=== PATIENT | male | born 1960 | race Caucasian/White ===

== ENCOUNTER 2025-09-30 08:23 | Emergency (ER) | payer OTHER ==
[~2025-09-30] VITALS: Ht 167.6 cm; Wt 73.0 kg
[2025-09-30 08:29] VITALS: O2SAT 98
[2025-09-30 10:51] LABS: CLARITY URINE CLEAR (CLEAR); COLOR URINE YELLOW (YELLOW); GLUCOSE URINE 3+ (NEGATIVE); KETONES URINE NEGATIVE (NEGATIVE); LEUKOCYTE ESTERASE URINE NEGATIVE (NEGATIVE); NITRITE URINE NEGATIVE (NEGATIVE); OCCULT BLOOD URINE NEGATIVE (NEGATIVE); PH URINE 5.5 (4.5-8.0); PROTEIN URINE 2+ (NEGATIVE); SPECIFIC GRAVITY URINE 1.015 (1.005-1.030); UROBILINOGEN URINE 0.2 E.U./dL (0.2-1.0)
[2025-09-30 11:13] LABS: CREATININE 2.6 mg/dL (0.6-1.3); UREA NITROGEN BLOOD 26.0 mg/dL (9-23)
[2025-09-30 11:22] LABS: BASOPHILS % 1.8 % (0.0-2.0); EOSINOPHILS % 5.4 % (0.0-5.0); HEMATOCRIT. 45.5 % (42.0-52.0); HEMOGLOBIN. 14.5 g/dL (14.0-18.0); LYMPHOCYTES % 23.3 % (20.0-50.0); MEAN PLATELET VOLUME 9.2 fl (7.4-10.4); MONOCYTES % 8.4 % (2.0-8.0); NEUTROPHILS % 61.1 % (40.0-76.0); PLATELET 137 x1000/uL (130-400); RED BLOOD CELL COUNT 4.99 mill/uL (4.7-6.1); RED CELL DISTRIBUTION WIDTH 14.7 % (11.6-14.6)
[2025-09-30 11:41] LABS: BACTERIA URINE NONE SEEN; RBC URINE 0-2 /hpf (0-2); SQUAMOUS EPITHELIAL CELL URINE RARE /lpf (RARE/1+); WBC URINE 0-2 /hpf (0-2); YEAST URINE NONE SEEN
[2025-09-30 13:38] VITALS: BP 150/78; PULSE 72; RESP 16; TEMP 36.6; O2SAT 98
== END 2025-09-30 13:39 | disposition home or self-care (01) ==
LOC: ER 08:23 → CMPBEDREQ 10-01 08:08
DX: E11.649 Type 2 diabetes mellitus with hypoglycemia without coma (principal); E78.5 Hyperlipidemia, unspecified; I10 Essential (primary) hypertension; Z88.0 Allergy status to penicillin
CPT/HCPCS: 36415; 80048; 81003; 82962; 85025; 93005; 99291; A4606